=== PATIENT | male | born 1985 | race African-American/Black ===

== ENCOUNTER 2017-05-26 21:08 | Emergency (ER) | payer SELFPAY ==
[~2017-05-26 21:08] MED LIST: ALBUTEROL
== END 2017-05-27 02:37 | disposition left against medical advice (07) ==
LOC: ER 21:55
DX: R68.84 Jaw pain (principal); Z53.21 Procedure and treatment not carried out due to patient leaving prior to being seen by health care provider

== ENCOUNTER 2019-09-11 06:27 | Emergency (ER) | payer SELFPAY ==
[~2019-09-11] VITALS: Ht 177.8 cm; Wt 73.0 kg
[2019-09-11] MEDS ORDERED: KETOROLAC 60MG/2ML VIAL IM STA (07:03)
[2019-09-11 08:35] VITALS: BP 139/72
== END 2019-09-11 08:35 | disposition home or self-care (01) ==
LOC: ER 06:27
DX: S39.012A Strain of muscle, fascia and tendon of lower back, initial encounter (principal); M25.522 Pain in left elbow; V49.40XA Driver injured in collision with unspecified motor vehicles in traffic accident, initial encounter; Y93.89 Activity, other specified; Y92.410 Unspecified street and highway as the place of occurrence of the external cause
CPT/HCPCS: 73080; 96372; 99283; J1885

== ENCOUNTER 2024-06-26 10:31 | Emergency (ER) | payer BC, OTHER ==
[~2024-06-26] VITALS: Ht 182.9 cm; Wt 79.0 kg
[2024-06-26 10:44] VITALS: TEMP 98.7; O2SAT 99
[2024-06-26 13:13] LABS: CLARITY URINE CLEAR (CLEAR); COLOR URINE YELLOW (YELLOW); GLUCOSE URINE NEGATIVE (NEGATIVE); KETONES URINE NEGATIVE (NEGATIVE); LEUKOCYTE ESTERASE URINE NEGATIVE (NEGATIVE); NITRITE URINE NEGATIVE (NEGATIVE); OCCULT BLOOD URINE NEGATIVE (NEGATIVE); PROTEIN URINE NEGATIVE (NEGATIVE); SPECIFIC GRAVITY URINE 1.026 (1.005-1.030)
[2024-06-26] MEDS ORDERED: TOPUD MT (14:17)
[2024-06-26] MEDS ORDERED: AMOX1TAB16 MT (14:17)
[2024-06-26] MEDS ORDERED: IBUP-1525 MT (14:17)
[2024-06-26 14:52] VITALS: BP 120/77; PULSE 70; RESP 16; O2SAT 99
== END 2024-06-26 14:56 | disposition home or self-care (01) ==
LOC: ER 10:31
DX: K02.9 Dental caries, unspecified (principal); J45.909 Unspecified asthma, uncomplicated
CPT/HCPCS: 81003; 99283